=== PATIENT | female | born 1995 | race Caucasian/White ===

== ENCOUNTER 2020-07-21 02:59 | Observation (INO) | payer MEDICAID, OTHER ==
[~2020-07-21] VITALS: Ht 160 cm; Wt 98.9 kg
[2020-07-21 04:37] LABS: Alcohol, Urine < 3.0 mg/dL (0-10); Amphetamine Screen, Urine NEGATIVE (NEGATIVE); Barbiturate Scree,Urine NEGATIVE (NEGATIVE); Benzodiazephine Screen, Urine NEGATIVE (NEGATIVE); Cannabinoid Screen, Urine NEGATIVE (NEGATIVE); Cocaine Screen, Urine NEGATIVE (NEGATIVE); Opiate Scree,Urine NEGATIVE (NEGATIVE); Phencyclidine Screen, Urine NEGATIVE (NEGATIVE)
[2020-07-21 04:41] LABS: Urine Bacteria NONE SEEN /hpf (None Seen); Urine Blood Negative /uL (Negative); Urine Specific Gravity 1.002 (1.001-1.035); Urine WBC 1 /hpf (0 - 5)
== END 2020-07-21 04:59 | disposition home or self-care (01) ==
LOC: LDRP 02:59
PROVIDERS: ADMIT Specialist; ATTEND Specialist
DX: O36.8130 Decreased fetal movements, third trimester, not applicable or unspecified (principal); O62.9 Abnormality of forces of labor, unspecified; Z3A.37 37 weeks gestation of pregnancy
CPT/HCPCS: 59025; 76818; 80307; 81001; 81002; G0378

== ENCOUNTER 2020-07-31 06:16 | Inpatient (IN) | payer MEDICAID ==
[~2020-07-31] VITALS: Ht 160 cm; Wt 97.0 kg
[2020-07-31] MEDS ORDERED: LACT. RINGERS/OXYTOCIN 20UNITS 1,000 ML IV SCH ×2 (06:41→08:38)
[2020-07-31] MEDS ORDERED: LACTATED RINGER'S 1,000 ML IV SCH (06:41)
[2020-07-31] MEDS ORDERED: PHISODERM TOP SOLN 240ML BTL TOP PRN (06:45)
[2020-07-31] MEDS ORDERED: DERMOPLAST 60ML BOTTLE TOP PRN (06:45)
[2020-07-31] MEDS ORDERED: LIDOCAINE 2%HCL (LOCAL ANESTH.) INJ 20ML MDV ID PRN (06:45)
[2020-07-31] MEDS ORDERED: WITCH HAZEL-GLYCERIN PAD TOP PRN (06:45)
[2020-07-31] MEDS ORDERED: PREN-96 PO (07:31)
[2020-07-31 07:35] LABS: Basophils # (auto) 0.1 10 ^3/uL (0-0.2); Basophils % (auto) 0.7 % (0.0-2.0); Eosinophils # (auto) 0.1 10 ^3/uL (0-0.8); Eosinophils % (auto) 0.7 % (0.0-7.0); Hematocrit 35.3 % (36.0-46.0); Hemoglobin 11.6 g/dL (12.2-16.2); Lymphocytes # (auto) 2.2 10 ^3/uL (0.4-5.4); Lymphocytes % (auto) 18.6 % (10.0-50.0); Mean Corpuscular Hemoglobin 28.9 pg (28.0-32.0); Mean Corpuscular Hgb Conc. 32.8 g/dL (32.0-36.0); Mean Corpuscular Volume 88.2 fL (80.0-100.0); Monocytes # (auto) 0.6 10 ^3/uL (0-1.3); Monocytes % (auto) 4.8 % (0.0-12.0); Neutrophils # (auto) 8.7 10 ^3/uL (1.6-8.6); Neutrophils % (auto) 75.2 % (37.0-80.0); Platelet Count (auto) 386 10^3/uL (140-450); Red Cell Distribution Width 14.9 % (11.8-14.3); White Blood Cell 11.6 10^3/uL (4.4-10.8)
[2020-07-31] MEDS ORDERED: LACT. RINGERS/OXYTOCIN 20UNITS 1,000 ML IV ONE (07:38)
[2020-07-31 07:43] LABS: Albumin 2.9 g/dL (3.4-5.0); Calcium 9.5 mg/dL (8.5-10.1)
[2020-07-31 07:44] LABS: INR 1.03 (0.9-1.15); Partial Thromboplastin Time 22.9 sec (23.0-31.2)
[2020-07-31 07:45] LABS: Urine Bacteria FEW /hpf (None Seen); Urine Blood TRACE /uL (Negative); Urine Mucus FEW (None Seen); Urine Specific Gravity 1.019 (1.001-1.035); Urine WBC 4 /hpf (0 - 5)
[2020-07-31] MEDS ORDERED: ACETAMINOPHEN 325 MG TAB PO PRN (07:45)
[2020-07-31 07:46] LABS: BUN/Creatinine Ratio 6.8; Bilirubin, Total 1.2 mg/dL (0.2-1.0); Total Protein 7.7 g/dL (6.4-8.2)
[2020-07-31 07:46] LABS: Alcohol, Urine < 3.0 mg/dL (0-10); Amphetamine Screen, Urine NEGATIVE (NEGATIVE); Barbiturate Scree,Urine NEGATIVE (NEGATIVE); Benzodiazephine Screen, Urine NEGATIVE (NEGATIVE); Cannabinoid Screen, Urine NEGATIVE (NEGATIVE); Cocaine Screen, Urine NEGATIVE (NEGATIVE); Opiate Scree,Urine NEGATIVE (NEGATIVE); Phencyclidine Screen, Urine NEGATIVE (NEGATIVE)
[2020-07-31] MEDS: IBUPROFEN 600 MG TAB PO PRN ×2 (08:23→14:35)
[2020-07-31 11:55] VITALS: BP 120/69
[2020-07-31 12:25] VITALS: BP 127/78
[2020-07-31 17:00] VITALS: BP 114/70
[2020-07-31 22:20] VITALS: BP 121/76
[2020-08-01] MEDS: IBUPROFEN 600 MG TAB PO PRN (01:32)
[2020-08-01 05:08] LABS: RPR Non Reactive (Non Reactive)
[2020-08-01 05:37] VITALS: BP 133/78
[2020-08-01 09:00] VITALS: BP 121/77
== END 2020-08-01 10:20 | disposition home or self-care (01) | DRG 560 ==
LOC: ER 06:16 → LDRP 06:20 → OBSVTOIN 06:20 → CENTRAL 12:19
PROVIDERS: ADMIT Obstetrics & Gynecology; ATTEND Obstetrics & Gynecology
PROC: 10D07Z6 Extraction of Products of Conception, Vacuum, Via Natural or Artificial Opening (ICD-10-PCS; principal; 2020-07-31)
DX: O36.4XX0 Maternal care for intrauterine death, not applicable or unspecified (principal); O77.0 Labor and delivery complicated by meconium in amniotic fluid; Z37.1 Single stillbirth; Z3A.39 39 weeks gestation of pregnancy
CPT/HCPCS: 36415; 59409; 80053; 80307; 81001; 84112; 85025; 85610; 85730; 86592; 86850; 86900; 86901; 94760; 96365; 96366; G0378; J2590

== ENCOUNTER 2022-10-02 07:11 | Emergency (ER) | payer MEDICAID ==
[~2022-10-02] VITALS: Ht 160 cm; Wt 82.0 kg
[~2022-10-02 07:11] MED LIST: PREN-96 PO
[2022-10-02 08:32] VITALS: BP 135/90
[2022-10-02] MEDS ORDERED: cefTRIAXone SOD 1,000 MG VL IM ONE (09:00)
[2022-10-02] MEDS ORDERED: IBUP800T27 PO (09:11)
[2022-10-02] MEDS ORDERED: CLIN300C8 PO (09:11)
== END 2022-10-02 09:20 | disposition home or self-care (01) ==
LOC: ER 07:11
DX: K04.7 Periapical abscess without sinus (principal); Z79.1 Long term (current) use of non-steroidal anti-inflammatories (NSAID); Z79.2 Long term (current) use of antibiotics
CPT/HCPCS: 41800; 96372; 99284; J0696